=== PATIENT | male | born 1975 | race Caucasian/White ===

== ENCOUNTER 2021-07-01 11:23 | Emergency (ER) | payer BC, OTHER ==
[~2021-07-01] VITALS: Ht 180.3 cm; Wt 113.4 kg
[~2021-07-01 11:23] MED LIST: IBUPROFEN800 MG PO; MEDROL DOSEPAK 24 MG PO; MYCOSTATIN100000 UTS PO; PROTONIX40 MG PO
== END 2021-07-01 15:57 | disposition home or self-care (01) ==
LOC: ER1 11:23
DX: Z23 Encounter for immunization (principal); U07.1 COVID-19
CPT/HCPCS: 71045; 99283; M0243